=== PATIENT | female | born 1945 | race Caucasian/White ===

== ENCOUNTER 2016-04-11 10:22 | Emergency (ER) | payer MEDICARE ==
[~2016-04-11] VITALS: Ht 162.6 cm; Wt 86.0 kg
[~2016-04-11 10:22] MED LIST: ALEN70TA39 PO; ALEV220C PO; ASPI-130 PO; CYCL20CR TD; CYMB60CA PO; HYDR-3534 PO; LEVO88TA2 PO; LORA1TAB PO; LOSA50TA PO; MEVA40TA6 PO; OYST500T77 PO; PRIL10CA PO; SEA-1000 PO; TAB-TAB PO; TURM450C PO
[2016-04-11 10:46] VITALS: BP 166/92; PULSE 71; RESP 18; TEMP 98.4; O2SAT 97
[2016-04-11 11:11] VITALS: BP 166/92; PULSE 71; RESP 18; TEMP 98.4; O2SAT 97
--- NOTE | 2016-04-11 11:41 | PD ---
HPI Chief Complaint: Hypertension Time Seen by Provider: 11:28 Travel History International Travel<30 days: No Contact w/Intl Traveler<30days: No Traveled to known affect area: No History of Present Illness HPI 71-year-old female is complaining of high blood pressure and headache. She has a history of hypertension and has been on losartan for over a year. She has been checking her blood pressures at home because she has not been feeling well and she has had readings as high as 223/128 and 202/156. She has been having intermittent headache which has been a bitemporal headache. She says she has been feeling weird the last few days. She has a history of chronic neck pain. She had epidural injections and was told that she could not have more. She has been started on topiramate and wonders if this may be causing her to not feel well. She has lost about 8 pounds since she's been on it and has had a diminished appetite. PFSH Past Medical History Arthritis: Yes Cancer: No Cardiovascular Problems: No High Cholesterol: Yes Diabetes: No Diminished Hearing: No Endocrine: Yes Gastrointestinal Disorders: No GERD: Yes Genitourinary: No Hepatitis: No Hiatal Hernia: Yes Hypertension: Yes Immune Disorder: No Implanted Vascular Access Dvce: No Musculoskeletal: Yes (herniated disc spinal stenosis) Neurologic: No Parkinson's Disease: No Psychiatric: Yes (anxiety) Reproductive: No Respiratory: No Thyroid Disease: Yes Tetanus Vaccination: > 5 Years Influenza Vaccination: No ?: Not Menopausal: Yes Past Surgical History AICD: No Gynecologic Surgery: Yes (hysterectomy left ovary removed) Hysterectomy: Yes Joint Replacement: No Pacemaker: No Other Surgery: Yes Social History Alcohol Use: No Tobacco Use: No (QUIT MAR 2006) Substance Use: No Allergies-Medications (Allergen,Severity, Reaction): Coded Allergies: Lisinopril (Verified Adverse Reaction, Severe, cough, 04/11/16) Reported Meds & Prescriptions Reported Meds & Active Scripts Active Reported Alendronate Sodium 70 Mg Tab 70 Mg PO Q7D Levothyroxine 88 mcg (Levothyroxine Sodium) 88 Mcg Tab 75 Mcg PO DAILY Losartan Potassium 50 MG (Losartan Potassium) 50 Mg Tab 50 Mg PO DAILY Mevacor (Lovastatin) 40 Mg Tab 40 Mg PO HS Lorazepam 1 Mg Tab 1 Mg PO HSPRN Aspirin EC Low Dose (Aspirin) 81 Mg Tab 81 Mg PO DAILY Multivitamin (Multivitamins) 1 Tab Tab 1 Tab PO DAILY [id number] Mg 500 Mg Cap 500 Mg PO DAILY Calcium 500 Mg Tab 500 Mg PO BID Prilosec (Omeprazole) 10 Mg Cap 20 Mg PO DAILY Review of Systems General / Constitutional: No: Fever Eyes: No: Diploplia HENT: Positive: Headaches, No: Vertigo Cardiovascular: No: Chest Pain or Discomfort, Palpitations Respiratory: No: Cough Gastrointestinal: Positive: Nausea Genitourinary: No: Frequency Musculoskeletal: No: Myalgias Skin: No Rash, No Itching Physical Exam Narrative Differential includes uncontrolled hypertension, adverse medication reaction, intracerebral lesion Data Data Last Documented VS Vital Signs Date Time Temp Pulse Resp B/P Pulse Ox O2 Delivery O2 Flow Rate FiO2 04/11/16 11:11 98.4 71 18 166/92 97 04/11/16 10:46 Room Air Orders Complete Blood Count With Diff (04/11/16 11:29) Basic Metabolic Panel (Bmp) (04/11/16 11:29) Magnesium (Mg) (04/11/16 11:29) Ct Brain W/O Iv Contrast(Rout) (04/11/16 11:29) Losartan (Cozaar) (04/11/16 11:45) Labs Laboratory Tests Test 04/11/16 11:48 White Blood Count 7.1 TH/MM3 Red Blood Count 4.62 MIL/MM3 Hemoglobin 13.6 GM/DL Hematocrit 40.3 % Mean Corpuscular Volume 87.1 FL Mean Corpuscular Hemoglobin 29.5 PG Mean Corpuscular Hemoglobin 33.8 % Concent Red Cell Distribution Width 14.2 % Platelet Count 304 TH/MM3 Mean Platelet Volume 7.4 FL Neutrophils (%) (Auto) 62.7 % Lymphocytes (%) (Auto) 24.3 % Monocytes (%) (Auto) 9.1 % Eosinophils (%) (Auto) 3.2 % Basophils (%) (Auto) 0.7 % Neutrophils # (Auto) 4.6 TH/MM3 Lymphocytes # (Auto) 1.7 TH/MM3 Monocytes # (Auto) 0.6 TH/MM3 Eosinophils # (Auto) 0.2 TH/MM3 Basophils # (Auto) 0.0 TH/MM3 CBC Comment DIFF FINAL Differential Comment Sodium Level 144 MEQ/L Potassium Level 4.2 MEQ/L Chloride Level 113 MEQ/L Carbon Dioxide Level 21.4 MEQ/L Anion Gap 10 MEQ/L Blood Urea Nitrogen 17 MG/DL Creatinine 0.80 MG/DL Estimat Glomerular Filtration 71 ML/MIN Rate Random Glucose 98 MG/DL Calcium Level 9.1 MG/DL Magnesium Level 2.4 MG/DL MDM Medical Decision Making Medical Screen Exam Complete: Yes Emergency Medical Condition: Yes Medical Record Reviewed: Yes Differential Diagnosis Differential includes hypertension, adverse medication reaction, intracerebral lesion Narrative Course CT of the brain is negative. Patient has been tracking her blood pressure and has had multiple elevated readings and is a bit elevated here. Her lab work is unremarkable. I have given her 50 mg additional losartan and recommend that she increase her losartan 100 mg daily. Some of her complaints may well be related to her topiramate. This medication cannot be stopped abruptly Diagnosis Primary Impression: Hypertension Qualified Code: I10 - Essential hypertension Additional Instructions: Increased losartan to 100 mg daily Disposition: 01 DISCHARGE HOME Condition: Stable Froy Murray MD Apr 11, 2016 11:41
[2016-04-11] MEDS ORDERED: LOSARTAN 50 MG TAB PO ONE (11:45)
[2016-04-11 11:54] LABS: AUTOMATED NEUTROPHIL # 4.6 TH/MM3 (1.8-7.7); BASOPHIL % 0.7 % (0.0-2.0); EOSINOPHIL # 0.2 TH/MM3 (0-0.4); EOSINOPHIL % 3.2 % (0.0-4.0); HEMATOCRIT 40.3 % (35.0-46.0); HEMO FLAGS DIFF FINAL; LYMPH % 24.3 % (9.0-44.0); LYMPHOCYTE # 1.7 TH/MM3 (1.0-4.8); MEAN CELL VOLUME 87.1 FL (80.0-100.0); MEAN CORPUSCULAR HEMOGLOBIN 29.5 PG (27.0-34.0); MEAN CORPUSCULAR HGB CONC 33.8 % (32.0-36.0); MONO % 9.1 % (0.0-8.0); NEUT % 62.7 % (16.0-70.0); PLATELET COUNT 304 TH/MM3 (150-450); RED BLOOD COUNT 4.62 MIL/MM3 (4.00-5.30); RED CELL DISTRIBUTION WIDTH 14.2 % (11.6-17.2); WHITE BLOOD COUNT 7.1 TH/MM3 (4.0-11.0)
--- NOTE | 2016-04-11 12:01 | RADHPO ---
EXAM DATE/TIME: 04/11/2016 11:51 [facility] COMPARISON: CT BRAIN W/O CONTRAST, July 29, 2014, 14:31. INDICATIONS : Headache. RADIATION DOSE: 59.03 CTDIvol (mGy) MEDICAL HISTORY : Hypertension. SURGICAL HISTORY : Hysterectomy. ENCOUNTER: Initial ACUITY: 1 day PAIN SCALE: 1/10 LOCATION: cranial TECHNIQUE: Multiple contiguous axial images were obtained of the head. Using automated exposure control and adj ustment of the mA and/or kV according to patient size, radiation dose was kept as low as reasonably a chievable to obtain optimal diagnostic quality images. FINDINGS: CEREBRUM: The ventricles are normal for age. No evidence of midline shift, mass lesion, hemorrhage or acute in farction. No extra-axial fluid collections are seen. POSTERIOR FOSSA: The cerebellum and brainstem are intact. The 4th ventricle is midline. The cerebellopontine angle i s unremarkable. EXTRACRANIAL: The visualized portion of the orbits is intact. SKULL: The calvaria is intact. No evidence of skull fracture. CONCLUSION: Normal examination. Frank Jackson MD on April 11, 2016 at 12:00 Board Certified Radiologist. This report was verified electronically.
[2016-04-11 12:03] LABS: POTASSIUM 4.2 MEQ/L (3.5-5.1)
[2016-04-11 12:06] LABS: BICARBONATE 21.4 MEQ/L (21.0-32.0); MAGNESIUM 2.4 MG/DL (1.5-2.5)
[2016-04-11 12:50] VITALS: BP 151/80; PULSE 70; RESP 16; O2SAT 97
[2016-07-08] MEDS ORDERED: MULT-135 PO (12:02)
[2016-07-08] MEDS ORDERED: MEVA40TA PO (12:02)
[2016-07-08] MEDS ORDERED: OMEP20TA PO (12:02)
[2016-07-08] MEDS ORDERED: CALC500T37 PO (12:05)
[2016-07-08] MEDS ORDERED: ALEN1TAB48 PO (12:05)
[2016-07-08] MEDS ORDERED: ASPI1TAB69 PO (12:05)
[2016-07-08] MEDS ORDERED: LORA1TAB12 PO (12:07)
[2016-07-08] MEDS ORDERED: LEVO75TA3 PO (12:07)
[2016-07-08] MEDS ORDERED: LOSA50TA PO (12:07)
[2016-07-15] MEDS ORDERED: AZIT250T3 PO (07:15)
[2016-07-15] MEDS ORDERED: RANI150T PO (07:15)
[2016-07-15] MEDS ORDERED: PANT40TA3 PO (07:15)
[2016-07-15] MEDS ORDERED: TOPI1TAB97 PO (07:15)
[2016-07-15] MEDS ORDERED: FISH500C (07:15)
[2016-07-15] MEDS ORDERED: CARA1TAB6 PO (07:15)
[2016-07-15] MEDS ORDERED: BENZ1CAP34 PO (07:16)
[2016-07-15] MEDS ORDERED: COUG100S PO (07:17)
== END 2016-04-11 12:52 | disposition home or self-care (01) ==
LOC: PHEFT 10:22
DX: I10 Essential (primary) hypertension (principal); R51 Headache; K21.9 Gastro-esophageal reflux disease without esophagitis; E78.00 Pure hypercholesterolemia, unspecified; M54.2 Cervicalgia; G89.29 Other chronic pain
CPT/HCPCS: 70450; 80048; 83735; 85025

== ENCOUNTER → 2016-07-15 | Day surgery (SDC) | payer MEDICARE ==
[~2016-07-15] VITALS: Ht 162.6 cm; Wt 78.5 kg
[~2016-07-15] MED LIST changes: +ALEN1TAB48 PO; -ALEN70TA39 PO; -ALEV220C PO; -ASPI-130 PO; +ASPI1TAB69 PO; +AZIT250T3 PO; +BENZ1CAP34 PO; +CALC500T37 PO; +CARA1TAB6 PO; +COUG100S PO; -CYCL20CR TD; +CYCLOPENTOLATE HCL 1% OPHT SOLN 2 ML BTL ONE; -CYMB60CA PO; +FISH500C; +FLURBIPROFEN 0.03% OPHT SOLN 2.5 ML BTL ONE; +HYALURONIDASE/LIDOCAINE/EPINEPHRINE/BUPIVACAINE 6 ML SYR ONE; -HYDR-3534 PO; +LEVO75TA3 PO; -LEVO88TA2 PO; +LIDOCAINE HCL 1% 30 ML VIAL ONE; +LIDOCAINE HCL 2% PF 5 ML VIAL ONE; -LORA1TAB PO; +LORA1TAB12 PO; +MEVA40TA PO; -MEVA40TA6 PO; +MULT-135 PO; +OMEP20TA PO; -OYST500T77 PO; +PANT40TA3 PO; +PHENYLEPHRINE HCL 10% OPTH SOLN 5 ML BTL ONE; -PRIL10CA PO; +PROPARACAINE HCL 0.5% OPHT SOLN 15 ML BTL ONE; +PROPOFOL 200 MG/20 ML AMP ONE; +RANI150T PO; +SODIUM CHLORID 0.9% 500 ML INJ 500 ML ONE; -TAB-TAB PO; +TOBRAMYCIN 0.3%/DEXAMETHASONE 0.1% OPHT SUSP 5 ML BTL ONE; +TOBRAMYCIN/DEXAMETHASONE OPTH OINT 3.5 GM TUBE LEFT EYE ONE; +TOBRAMYCIN/DEXAMETHASONE OPTH OINT 3.5 GM TUBE ONE; +TOPI1TAB97 PO; +TROPICAMIDE 1% OPHT SOLN 15 ML BTL ONE; -TURM450C PO
[2016-07-15 07:00] VITALS: BP 145/88; PULSE 73; RESP 16; TEMP 97.6; O2SAT 99
[2016-07-15 07:10] VITALS: PULSE 73
[2016-07-15 07:44] VITALS: PULSE 67
[2016-07-15 09:00] VITALS: TEMP 97.9
[2016-07-15 09:20] VITALS: BP 129/47; PULSE 69; RESP 16; O2SAT 96
--- NOTE | 2016-07-17 13:37 | MP ---
cc: DK FOY MD Corrected Copy: 07/19/16 DATE OF SURGERY: 07/15/2016 PREOPERATIVE DIAGNOSIS Visually significant cataract left eye. POSTOPERATIVE DIAGNOSIS: Visually significant cataract left eye. OPERATION: Phacoemulsification with posterior chamber lens implantation, left eye. SURGEON: Dk Foy MD ANESTHESIA: Retrobulbar with MAC. COMPLICATIONS: None. PROCEDURE: After informed consent was obtained, the patient was brought into the operative suite and placed on appropriate monitors by the Anesthesia Service. The patient had received a prior retrobulbar injection of local anesthetic by the Anesthesia Service in the holding area. The patient's operative eye was then prepped and draped in the usual sterile fashion. A wire lid speculum was placed. A paracentesis incision was made in the peripheral cornea with a 1 mm del keratome. The anterior chamber was filled with viscoelastic. The anterior chamber was then entered through a stepped, clear corneal incision using a sharp 3 mm del keratome. A circular tear capsulorrhexis was then made with a bent needle cystitome. Following hydrodissection of the lens nucleus with balanced saline, phaco-emulsification of the nucleus was performed using a modified chopping technique. The remaining cortex was removed with irrigation/aspiration. The prior two procedures were both performed using the handpieces of the [employer] phaco unit. The capsular bag was then filled with viscoelastic. The intraocular lens was then injected into the capsular bag and positioned. The type of intraocular lens and its power can be found elsewhere in this chart. The remaining viscoelastic was then removed from the anterior chamber with the IA handpiece. The anterior chamber was reformed with balanced saline. The wound was then closed securely with stromal hydration. It was found to be watertight to an intraocular pressure of at least 30 mmHg by palpation. A small amount of balanced salt solution was then removed through the paracentesis site and the intraocular pressure at the end of the case was approximately 20 by palpation. All drapes were then removed. TobraDex ointment was then placed in the eye, which was closed beneath a semi-pressure patch dressing. The patient tolerated this procedure well and left the operating room awake and alert. The patient is to follow-up in my office in the morning. ADDENDUM: After the clear corneal incisions were sealed watertight, an 8-mm limbal relaxing incision was made with a 600 micron del blade, centered around the inferior 90-degree meridian. MD LAYO Ardon/SHANNON /9:34 AM /8:22 AM
== END | disposition home or self-care (01) ==
LOC: PHSDC 06:23
PROVIDERS: ATTEND Optometrist Occupational Vision
DX: H25.012 Cortical age-related cataract, left eye (principal)
CPT/HCPCS: 00142; 66984; J7040; V2632

== ENCOUNTER → 2016-08-26 | Day surgery (SDC) | payer MEDICARE ==
[~2016-08-26] VITALS: Ht 162.6 cm; Wt 79.5 kg
[~2016-08-26] MED LIST changes: -ASPI1TAB69 PO; -LIDOCAINE HCL 1% 30 ML VIAL ONE; +LIDOCAINE HCL 1% PF 30 ML VIAL ONE; -LIDOCAINE HCL 2% PF 5 ML VIAL ONE; +MIDAZOLAM HCL 2 MG/2 ML VIAL ONE; -SEA-1000 PO; -TOBRAMYCIN 0.3%/DEXAMETHASONE 0.1% OPHT SUSP 5 ML BTL ONE; -TOBRAMYCIN/DEXAMETHASONE OPTH OINT 3.5 GM TUBE LEFT EYE ONE
[2016-08-26 07:07] VITALS: BP 150/87; PULSE 61; RESP 16; TEMP 98.1; O2SAT 99
[2016-08-26 07:11] VITALS: PULSE 61
[2016-08-26 07:49] VITALS: PULSE 78
[2016-08-26 09:18] VITALS: BP 135/89; PULSE 62; RESP 16; TEMP 98; O2SAT 97
--- NOTE | 2016-08-26 23:12 | MP ---
cc: DK FOY MD [facility] #[id number] DATE OF SURGERY 08/26/16 POSTOPERATIVE DIAGNOSIS: Visually significant cataract right eye. OPERATION: Phacoemulsification with posterior chamber lens implantation, right eye. SURGEON: Dk Foy MD ANESTHESIA: Retrobulbar with MAC. COMPLICATIONS: None. PROCEDURE: After informed consent was obtained, the patient was brought into the operative suite and placed on appropriate monitors by the Anesthesia Service. The patient had received a prior retrobulbar injection of local anesthetic by the Anesthesia Service in the holding area. The patient's operative eye was then prepped and draped in the usual sterile fashion. A wire lid speculum was placed. A paracentesis incision was made in the peripheral cornea with a 1 mm edl keratome. The anterior chamber was filled with viscoelastic. The anterior chamber was then entered through a stepped, clear corneal incision using a sharp 3 mm del keratome. A circular tear capsulorrhexis was then made with a bent needle cystitome. Following hydrodissection of the lens nucleus with balanced saline, phaco-emulsification of the nucleus was performed using a modified chopping technique. The remaining cortex was removed with irrigation/aspiration. The prior two procedures were both performed using the handpieces of the [employer] phaco unit. The capsular bag was then filled with viscoelastic. The intraocular lens was then injected into the capsular bag and positioned. The type of intraocular lens and its power can be found elsewhere in this chart. The remaining viscoelastic was then removed from the anterior chamber with the IA handpiece. The anterior chamber was reformed with balanced saline. The wound was then closed securely with stromal hydration. It was found to be watertight to an intraocular pressure of at least 30 mmHg by palpation. A small amount of balanced salt solution was then removed through the paracentesis site and the intraocular pressure at the end of the case was approximately 20 by palpation. All drapes were then removed. TobraDex ointment was then placed in the eye, which was closed beneath a semi-pressure patch dressing. The patient tolerated this procedure well and left the operating room awake and alert. The patient is to follow-up in my office in the morning. ADDENDUM After the clear corneal incisions were sealed watertight, an 8 mm limbal relaxing incision was made with a 600 micron del blade, centered around the superior 90 degree meridian. MD ANGELES Ardon /9:51 AM /11:06 PM
== END | disposition home or self-care (01) ==
LOC: PHSDC 06:28
PROVIDERS: ATTEND Optometrist Occupational Vision
DX: H25.811 Combined forms of age-related cataract, right eye (principal)
CPT/HCPCS: 00142; 66984; J7040; V2632; J2250

== ENCOUNTER → 2016-10-21 | Outpatient (CLI) | payer MEDICARE ==
[~2016-10-21] MED LIST changes: -AZIT250T3 PO; -BENZ1CAP34 PO; -CALC500T37 PO; -CARA1TAB6 PO; -COUG100S PO; +CYCL1TAB29 PO; -CYCLOPENTOLATE HCL 1% OPHT SOLN 2 ML BTL ONE; -FISH500C; -FLURBIPROFEN 0.03% OPHT SOLN 2.5 ML BTL ONE; -HYALURONIDASE/LIDOCAINE/EPINEPHRINE/BUPIVACAINE 6 ML SYR ONE; +HYDR-3583 PO; -LEVO75TA3 PO; -LIDOCAINE HCL 1% PF 30 ML VIAL ONE; +LOSA100T PO; +LOVA40TA PO; -MEVA40TA PO; -MIDAZOLAM HCL 2 MG/2 ML VIAL ONE; -MULT-135 PO; -OMEP20TA PO; -PANT40TA3 PO; -PHENYLEPHRINE HCL 10% OPTH SOLN 5 ML BTL ONE; -PROPARACAINE HCL 0.5% OPHT SOLN 15 ML BTL ONE; -PROPOFOL 200 MG/20 ML AMP ONE; +PROT40TA PO; -RANI150T PO; -SODIUM CHLORID 0.9% 500 ML INJ 500 ML ONE; +SYNT88TA PO; -TOBRAMYCIN/DEXAMETHASONE OPTH OINT 3.5 GM TUBE ONE; -TOPI1TAB97 PO; -TROPICAMIDE 1% OPHT SOLN 15 ML BTL ONE
== END ==
LOC: CPRE 11:36
PROVIDERS: ATTEND Neurological Surgery
DX: Z01.812 Encounter for preprocedural laboratory examination (principal); Z01.811 Encounter for preprocedural respiratory examination; Z01.818 Encounter for other preprocedural examination; M48.02 Spinal stenosis, cervical region; M50.30 Other cervical disc degeneration, unspecified cervical region; M50.10 Cervical disc disorder with radiculopathy, unspecified cervical region

== ENCOUNTER 2016-10-27 08:24 | Observation (INO) | payer MEDICARE ==
--- NOTE | 2016-10-26 12:29 | MH ---
cc: JUNIOR COFFEY ROHIT K. M.D. DATE OF ADMISSION: 10/27/2016 ADMITTING DIAGNOSIS: Cervical spinal stenosis. HISTORY OF PRESENT ILLNESS: This is a 71 year-old female who presented to us for evaluation of left trapezius and scapula area pain. She has had this pain chronically and has previously been seen on 10/28/2014. She has been to pain management since then and had epidural steroid injections. She states that the injections did help her for several years. She states that the pain is in the left trapezius and scapula area and lateral aspect of the left upper extremity. She denies any neck pain or right upper extremity pain. She has tried a Transcutaneous electrical nerve stimulation unit, Ice and physical therapy. She has used antiinflammatory medications in the past but developed gastritis and a gastric ulcer and cannot tolerate them. She rarely gets paresthesias in the left hand. She also complains of low back pain radiating into the lower extremities, right more then the left. PAST MEDICAL HISTORY: 1. Significant for hypothyroidism. 2. Hypertension. 3. Gastroesophageal reflux disease. 4. Osteoporosis. 5. Kidney stones. 6. Surgery on both wrists. 7. Ruptured Achilles tendon. 8. 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 9. Cataracts in 2017. 10. Varicose vein surgery in 1982. 11. Hysterectomy in 1984. CURRENT MEDICATIONS: 1. She takes Alendronate 70 mg once per week. 2. Lovastatin 40 mg daily. 3. Synthroid 88 mcg daily. 4. Lorazepam as needed 5. Losartan 100 mg daily. 6. Lisinopril ALLERGIES CODEINE LISINOPRIL PANTOPRAZOLE PRESTIGE. FAMILY HISTORY: Her father is at 96 years old. Mother at 71 year-old had diabetes. She has a brother who is alive at 79 years old. She has a sister who is alive at 80 years old. She has three other sisters who are alive at 76, 68 and 66 years old. 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 She is . She has two children. She quit smoking in 2007. She drinks two to three drinks per year. REVIEW OF SYSTEMS CONSTITUTIONAL: She denies any fever or chills. EAR, NOSE, AND THROAT: No pharyngitis, exudates, bloody drainage from her nose. CARDIOVASCULAR SYSTEM: She denies any chest pain, occasional palpitations. RESPIRATORY: No cough or shortness of breath. GENITOURINARY: No dysuria, hematuria. MUSCULOSKELETAL: Positive for neck pain and low back pain. SKIN: No rashes or pleuritis. NEUROLOGIC: No difficulty with speech or memory. GASTROINTESTINAL: No nausea, vomiting or abdominal pain. PSYCHIATRIC: No anxiety or depression symptoms. UROLOGIC: No polydipsia, positive for polyuria at night. ENDOCRINE: Positive for easy bruising but no bleeding tendencies. PHYSICAL EXAMINATION: HEAD, EYES, EARS, NOSE, AND THROAT: Normocephalic, atraumatic. NECK: Supple. No carotid bruits heard on auscultation. LUNGS: Clear to auscultation bilaterally. HEART: Regular rate and rhythm, normal S1, S2. ABDOMEN: Soft, nontender. Positive bowel sounds. SKIN: The skin reveals no cyanosis or erythema. MUSCULOSKELETAL: He moves all four extremities, he has 5/5 strength in the upper extremities, ambulates with no assistive device. NEUROLOGIC: She is awake, alert and oriented cranial nerves II through XII intact, speech is fluent, comprehension is good. She follows commands well. Sensation is intact in the upper and lower extremities. She has reflexes that are diminished in the upper extremities. DATA REVIEWED: MRI of the cervical spine from 09/21/2016 reveals a disc osteophyte complex at C5-C6 with spinal and more significant left side foraminal stenosis. There is a lesser degree of degenerative disc disease at C6-C7. IMPRESSION: The 71 year old female with chronic history of left paraspinal neck pain that radiates into the scapula and the left upper extremity. She had carpal tunnel release surgery which helped with the related symptoms, but the symptoms from the left cervical stenosis has persisted. We have been following her for her complaints for several years with conservative management but she relates that her recent cervical epidural steroid injections are not helping her pain and she cannot live with current level of discomfort. She also suffers from chronic low back pain but this is improved with epidural steroid injections. PLAN: We have discussed treatment options with the patient and she has tried conservative treatment measures and she is currently not happy with her pain level and she is requesting that I will proceed with surgical intervention. We have discussed a anterior C5-C6 anterior cervical fusion with foraminotomy. The procedure as well as the risks, benefits, alternatives and recovery time was explained in great detail with the patient. We have discussed the risks involved with surgery including but not limited to bleeding, infection, muscle weakness, voice hoarseness, difficulty swallowing, heart attack, stroke, blood clots. Non-fusion, scar tissue formation among others. The patient states that she understands the procedure as well as the risks involved and she is requesting the procedure be scheduled accordingly. Dangelo Hagen MD DICTATED BY: SONDRA Solares/lynn /10:46 AM /10:58 AM
[~2016-10-27] VITALS: Ht 163.8 cm; Wt 82.3 kg
[~2016-10-27 08:24] MED LIST changes: -CYCL1TAB29 PO; +GELFOAM SIZE 100 ONE; -HYDR-3583 PO; -LOSA100T PO; +THROMBIN (TOPICAL) 5,000 UNIT VIAL ONE; +VANCOMYCIN HCL 1000 MG VIAL ONE
[2016-10-27] MEDS ORDERED: CHLORHEXIDINE GLUCONATE 2 % 1 PACK (2 CLOTHS) TOPICAL PRN (09:15)
[2016-10-27] MEDS ORDERED: SODIUM CHLORID 0.9% 500 ML IV PRN (09:15)
[2016-10-27] MEDS ORDERED: VANCOMYCIN HCL 1000 MG ON-CALL/NS 250 ML IV SCH ×2 (09:15)
[2016-10-27] MEDS ORDERED: LACTATED RINGER'S 1000 ML IV PRN (09:15)
[2016-10-27] MEDS ORDERED: POVIDONE IODINE 5% (ANTISEPSIS KIT) 4 APPLICATIONS EACH NARE PRN (09:15)
[2016-10-27] MEDS: SODIUM CHLOR 0.9% 1000 ML INJ 1,000 ML IV SCH (09:15)
[2016-10-27] MEDS ORDERED: METOPROLOL TARTRATE 25 MG TAB PO PRN (09:15)
[2016-10-27] MEDS ORDERED: INSULIN HUMAN REGULAR 1,000 UNITS/10 ML VIAL SQ PRN (09:15)
[2016-10-27] MEDS ORDERED: LOSA100T PO (09:20)
[2016-10-27 09:22] VITALS: BP 166/82; PULSE 75; RESP 20; TEMP 98; O2SAT 100
[2016-10-27] MEDS ORDERED: APREPITANT 40 MG CAP ONE (10:11)
[2016-10-27] MEDS ORDERED: FAMOTIDINE 20 MG/2 ML VIAL ONE (11:12)
[2016-10-27] MEDS ORDERED: MIDAZOLAM HCL 2 MG/2 ML VIAL ONE (11:12)
[2016-10-27] MEDS ORDERED: PROPOFOL 200 MG/20 ML AMP IV ONE (12:00)
[2016-10-27] MEDS ORDERED: PHENYLEPH/NS 1000 MCG/10 ML SYR IV ONE (12:00)
[2016-10-27] MEDS ORDERED: ONDANSETRON HCL 4 MG/2 ML VIAL IV PUSH ONE (12:00)
[2016-10-27] MEDS ORDERED: LACTATED RINGER'S 1000 ML INJ 1,000 ML IV ONE (12:00)
[2016-10-27] MEDS ORDERED: ePHEDrine/NS 25 MG/5 ML SYR IV ONE (12:20)
[2016-10-27] MEDS ORDERED: GELFOAM SIZE 100 TOP ONE (12:38)
[2016-10-27] MEDS ORDERED: BUPIVACAINE/EPINEPHRINE 0.5% PF 30 ML VIAL INFIL ONE (12:38)
[2016-10-27] MEDS ORDERED: VANCOMYCIN HCL 1000 MG VIAL OTHER ONE (12:38)
[2016-10-27] MEDS ORDERED: THROMBIN (TOPICAL) 5,000 UNIT VIAL TOP ONE (12:38)
--- NOTE | 2016-10-27 13:50 | PD.OP ---
MD Santosh Hunt MD Operative Report Date of Surgery: Oct 27, 2016 Preoperative Diagnosis: Cervical C5-6 degenerative disc disease with disc osteophyte complex as well as a spinal and foraminal stenosis with neck pain and left C6 radiculopathy Postoperative Diagnosis: Same Procedure: Anterior cervical C5-6 microdiscectomy with interbody fusion; anterior C5-6 cervical plate placement; C5-6 interbody cage placement; microsurgical technique Anesthesia: Gen. endotracheal by Oli Hernandez Surgeon: Dangelo Hagen M.D. Complaint Supervisor(s): Gayathri Cheema Operation and Findings: Following administration of general endotracheal anesthesia, the patient received a gram of vancomycin and Decadron 10 mg intravenously. Sequential compression devices were placed in supine position on a [place] table and all pressure points adequately padded. The head secured in a donut and anterior cervical region then shaved and prepped with Chloraprep and sterilely draped with Ioban along with the usual sterile draping. A transverse skin incision on the left side of the neck was then made after infiltrating the skin with 0.5% Marcaine with epinephrine solution extending down through the platysma. At the anterior border of the sternocleidomastoid further dissection was undertaken developing a plane between the carotid sheath laterally and the trachea esophagus medially. The prevertebral fascia was exposed and dissected out. The medial attachments of the longus colli muscles were detached and a self- retaining retractor used for exposure. The C5-6 disc space was localized with a marking the disc space and using lateral fluoroscopy. Cutler distraction screws 14 mm length were placed one in the C5 and one in the C6 body interbody distraction and exposure. There was significant disc degeneration with disc height collapse and anterior osteophytes noted at the C5-6 level and the osteophytes were resected with a Leksell and annulus incised with a 15 blade and further dissection undertaken using microtechnique with microscope magnification. Diskectomy was undertaken with pituitaries and the endplates were also decorticated with curettes and drill bit. And more posteriorly there was disk osteophyte complex compressing the thecal sac along with a significant uncovertebral joint hypertrophy with foraminal stenosis worse on the left side which was decompressed along with removal of the posterior longitudinal ligaments at both levels. The foramen was decompressed bilaterally using a Kerrison's and palpation with a nerve hook, the exiting nerve roots were felt to be free. The area was then copiously irrigated. I then placed a Peek cage packed with local autograft bone at the C5-6 interspace under fluoroscopy guidance. Cutler distraction pins were removed and the holes plugged with Gelfoam for hemostasis. In order to facilitate the fusion and provide stabilization, a Precision spine cervical plate was then placed with two 14 mm variable angle screws in the C5 body and two 14 mm fixed angle screws in the C6 body. The plate screw locking mechanism was then engaged. AP and lateral fluoroscopy confirmed good placement of the construct and the retractor was then removed. Muscular bleeding points were cauterized with bipolar cautery and Gelfoam was then also used for hemostasis which was removed. The platysma was then approximated using 3-0 Vicryl interrupted stitches and 3-0 Vicryl subcuticular stitch also placed in an interrupted fashion, and final skin closure was with Mastisol and Steri-Strips. Sterile dressing was then applied. The patient was then extubated and taken to the recovery room. There are no intraoperative complications and all sponge and needle counts were correct at the end of procedure. Estimated blood loss was about 30 cc. The patient did undergo intraoperative neurologic monitoring which remained stable throughout the surgery. Dangelo Hagen MD Oct 27, 2016 13:50
[2016-10-27] MEDS ORDERED: NS + KCL 20 MEQ INJ 1,000 ML IV SCH (13:54)
[2016-10-27] MEDS ORDERED: METOCLOPRAMIDE HCL 10 MG/2 ML VIAL IV PUSH PRN (14:00)
[2016-10-27] MEDS ORDERED: ALENDRONATE SODIUM 70 MG TAB PO SCH (14:00)
[2016-10-27] MEDS ORDERED: MAGNESIUM HYDROXIDE SUSP 30 ML CUP PO PRN (14:00)
[2016-10-27] MEDS ORDERED: MENTHOL LOZENGE BUCCAL PRN (14:00)
[2016-10-27] MEDS ORDERED: ACETAMINOPHEN/HYDROcodone 325 MG/10 MG TAB PO PRN (14:00)
[2016-10-27] MEDS ORDERED: ONDANSETRON HCL 4 MG/2 ML VIAL IV PRN (14:00)
[2016-10-27] MEDS ORDERED: LORazepam 1 MG TAB PO PRN (14:00)
[2016-10-27] MEDS ORDERED: SODIUM CHLORIDE 0.9% FLUSH 10 ML FLUSH IV FLUSH PRN (14:00)
[2016-10-27] MEDS ORDERED: ALUMINUM/MAGNESIUM/SIMETH 30 ML CUP PO PRN (14:00)
[2016-10-27] MEDS ORDERED: RESP: ALBUTEROL 2.5 MG/3 ML NEB (PRN) NEB (14:00)
[2016-10-27] MEDS ORDERED: cloNIDine HCL 0.1 MG TAB PO PRN (14:00)
[2016-10-27] MEDS ORDERED: ZOLPIDEM TARTRATE 5 MG TAB PO PRN (14:00)
[2016-10-27] MEDS ORDERED: MORPHINE SULFATE 4 MG/ML INJ IV PRN (14:00)
[2016-10-27] MEDS ORDERED: ACETAMINOPHEN 325 MG TAB PO PRN (14:00)
[2016-10-27] MEDS ORDERED: CYCLOBENZAPRINE HCL 10 MG TAB PO PRN (14:00)
[2016-10-27] MEDS ORDERED: fentaNYL CITRATE 250 MCG/5 ML AMP ONE (14:16)
[2016-10-27] MEDS ORDERED: *ONDANSETRON 4 MG VIAL PERIprocedural Use ONLY ONE (14:18)
[2016-10-27] MEDS ORDERED: *morphine SULFATE 8 MG/ML PERIprocedure ONLY ONE ×2 (14:18→14:31)
--- NOTE | 2016-10-27 14:44 | RADRPT ---
EXAM DATE/TIME: 10/27/2016 12:10 [facility] COMPARISON: No previous studies available for comparison. INDICATIONS : C5-6 fusion. MEDICAL HISTORY : None. SURGICAL HISTORY : None. ENCOUNTER: Initial ACUITY: 1 day PAIN SCORE: Non-responsive. LOCATION: Bilateral C-spine. FINDINGS: Two-view cervical spine demonstrates the C5-C6 anterior plate is in good position. There are no comp lications. Cristobal Desir MD on October 27, 2016 at 14:38 Board Certified Radiologist. This report was verified electronically.
[2016-10-27] MEDS ORDERED: DO NOT ADM ANY ANTICOAGULANT DRUGS PRN (15:30)
[2016-10-27] MEDS: DEXAMETHASONE SOD PHOS 4 MG/ML VIAL IV SCH ×2 (16:12→23:06)
[2016-10-27] MEDS: ACETAMINOPHEN/HYDROcodone 325 MG/10 MG TAB PO PRN (19:59)
[2016-10-27] MEDS: DOCUSATE SODIUM 100 MG CAP PO SCH (23:07)
[2016-10-27] MEDS: SODIUM CHLORIDE 0.9% FLUSH 10 ML FLUSH IV FLUSH SCH (23:07)
[2016-10-28] VITALS: BP 131/61; PULSE 63; RESP 18; TEMP 97.5; O2SAT 96
[2016-10-28] MEDS: DEXAMETHASONE SOD PHOS 4 MG/ML VIAL IV SCH (02:45)
[2016-10-28] MEDS: SODIUM CHLOR 0.9% 1000 ML INJ 1,000 ML IV SCH (02:46)
[2016-10-28 04:00] VITALS: BP 127/60; PULSE 63; RESP 20; TEMP 98.4; O2SAT 98
[2016-10-28 08:00] VITALS: BP 126/60; PULSE 63; RESP 16; TEMP 97.4; O2SAT 96
[2016-10-28] MEDS: ACETAMINOPHEN/HYDROcodone 325 MG/10 MG TAB PO PRN (08:46)
[2016-10-28] MEDS: DOCUSATE SODIUM 100 MG CAP PO SCH (08:46)
[2016-10-28] MEDS: SODIUM CHLORIDE 0.9% FLUSH 10 ML FLUSH IV FLUSH SCH (08:46)
[2016-10-28] MEDS ORDERED: PRAVASTATIN SOD 40 MG TAB PO SCH (09:00)
[2016-10-28] MEDS ORDERED: LOSARTAN 50 MG TAB PO SCH (09:00)
[2016-10-28] MEDS ORDERED: PANTOPRAZOLE SOD 40 MG DELAYED RELEASE TAB PO SCH (09:00)
[2016-10-28] MEDS ORDERED: LEVOTHYROXINE SODIUM 88 MCG TAB PO SCH (09:00)
--- NOTE | 2016-10-28 09:09 | HHI.NSPN ---
History Chief Complaint: Mild incisional discomfort s/p C5/C6 ACF. Interval History 10/28/16: Pt underwent a C5/C6 ACF with interbody cage and plate placement on . She complains of mild incisional discomfort. Also mild muscle discomfort in the left trapezius area. She denies any radiculopathy or paresthesias in the upper extremities and she is very pleased the results of far. She states that she has been up out of bed walking down and around the halls also. She would like to go home today. Review of Systems General: Negative for: fever, chills, insomnia Respiratory: Negative for: shortness of breath, cough, sputum Cardiovascular: Negative for: chest pain Gastrointestinal: Negative for: nausea, vomitting, diarrhea, constipation Exam Results Vital Signs Date Time Temp Pulse Resp B/P Pulse Ox O2 Delivery O2 Flow Rate FiO2 10/28/16 08:00 97.4 63 16 126/60 96 10/27/16 18:10 Room Air 10/27/16 16:00 2 Intake and Output 10/27/16 10/27/16 10/27/16 07:59 15:59 23:59 Intake Total 2000 ml 300 ml Output Total 75 ml Balance 1925 ml 300 ml Physical Examination Resp: CTA bilaterally Heart: NSR no murmurs Abd: soft positive bs Skin: Incision clean and dry. new bandage placed. Muscle: Moves all 4 extremities well. Patient ambulates well. Neuro: Pt awake and alert. Pupils are equal. Face is symmetric. Speech is clear and appropriate. Lab, Micro, Other Results 10/27/16 10/27/16 10/28/16 14:59 22:59 06:59 Intake Total 2000 ml 300 ml Output Total 75 ml Balance 1925 ml 300 ml IV Total 300 ml Other 2000 ml Output Estimated Blood Loss 75 ml # Voids 1 0 4 Medical Decision Making Impression and Plan A: 71-year-old female status post C4/C5 anterior cervical fusion. Plan: Discharge home Discussed restrictions Discussed incision care She will follow up as instructed on preop instruction sheet. Sreekanth Au Oct 28, 2016 09:09
[2016-10-28] MEDS ORDERED: HYDR-3583 PO (09:12)
[2016-10-28] MEDS ORDERED: CYCL1TAB29 PO (09:12)
== END 2016-10-28 11:46 | disposition home or self-care (01) ==
LOC: HSDC 08:24 → HSDI 13:58 → N05A 18:33
PROVIDERS: ADMIT Neurological Surgery; ATTEND Neurological Surgery
PROC: 0RB30ZZ Excision of Cervical Vertebral Disc, Open Approach (ICD-10-PCS; 2016-10-27)
PROC: 0RG10A0 Fusion of Cervical Vertebral Joint with Interbody Fusion Device, Anterior Approach, Anterior Column, Open Approach (ICD-10-PCS; 2016-10-27)
PROC: 0RG10A0 Fusion of Cervical Vertebral Joint with Interbody Fusion Device, Anterior Approach, Anterior Column, Open Approach (ICD-10-PCS; principal; 2016-10-27 11:25)
DX: M50.122 Cervical disc disorder at C5-C6 level with radiculopathy (principal); M48.02 Spinal stenosis, cervical region; M25.78 Osteophyte, vertebrae; E03.9 Hypothyroidism, unspecified; I10 Essential (primary) hypertension; K21.9 Gastro-esophageal reflux disease without esophagitis; M81.0 Age-related osteoporosis without current pathological fracture; Z79.899 Other long term (current) drug therapy
CPT/HCPCS: 00626; 22551; 22845; 72040; 76000; C1713; G0378; J0690; J1100; J2250; J2270; J2370; J2405; J3010; J3370; J3480; J7030; J7050; J7120; J8501